=== PATIENT | male | born 1990 | race Caucasian/White ===

== ENCOUNTER 2017-05-16 15:36 | Emergency (ER) | payer OTHER ==
--- NOTE | 2017-05-16 21:08 | ER ---
Date of Service: 05/16/2017 SUBJECTIVE: Shiv presents to the emergency room with complaints of left knee pain. The patient states that he was running and felt a popping sensation in his left knee and developed onset of acute discomfort in the joint. He denies any injury other than was isolated to his left knee. The patient states that he is not experiencing any numbness or tingling distal to the area of injury. He denies any other previous injury to this area in the past. PAST MEDICAL HISTORY: None. MEDICATIONS: None. ALLERGIES: NKDA. REVIEW OF SYSTEMS: Denies any numbness or tingling distal to the area of injury. States injury again is isolated to his left knee. PHYSICAL EXAMINATION: General: This is a 26-year-old male patient, in no acute distress. Vital Signs: Blood pressure is 156/105, heart rate is 97, temperature is 36.4, respiratory rate 14, O2 saturations 97%. Skin: Warm, pink, and dry. Musculoskeletal: Minimal swelling noted to the left knee. No ecchymosis noted. No crepitus or deformity noted. Drawer test is negative. Does have some increased discomfort with varus and valgus stress. Remainder of his physical examination is within normal limits. RADIOGRAPHIC DATA: Three-view left ankle series was obtained. There was no evidence of any acute fracture or dislocation or other pathology. He did have evidence of a small joint effusion. ASSESSMENT: Acute left knee injury. PLAN: The patient will be discharged. Certainly, he could have underlying soft tissue injury such as a meniscal tear or ligamentous injury, which would not be evident on radiographic evaluation. He was advised to follow up in the clinic in the next 7 to 10 days if he is continuing to have discomfort for further evaluation and treatment. I did offer him Physical Therapy which he adamantly refused. He states he does have access to crutches which he will use to help with ambulation. Ice the joint for 15 to 20 minutes every [address] a compression bandage as needed to help with compression. He was advised to elevate the left lower extremity above the heart as much as possible. All questions were answered. MWK: 05/16/2017 20:49:55 MODL: 05/16/2017 21:02:48 /[id number]
== END 2017-05-16 16:40 | disposition home or self-care (01) ==
LOC: VM.ED 15:36
DX: S89.92XA Unspecified injury of left lower leg, initial encounter (principal); X50.9XXA Other and unspecified overexertion or strenuous movements or postures, initial encounter
CPT/HCPCS: 73562-LT; 99283